=== PATIENT | female | born 1985 | race Caucasian/White ===

== ENCOUNTER 2017-05-03 18:33 | Emergency (ER) | payer OTHER ==
[~2017-05-03] VITALS: Wt 119.3 kg
[~2017-05-03 18:33] MED LIST: AMOXICILLIN500 MG PO; AMOXIL875 MG PO; ANAPROX DS550 MG PO; BIRTH CONTROL1 EACH PO; CLARITIN10 MG PO; LOMOTIL 0.025 M1 TA1 PO; MACROBID100 M1 PO; MEDROL DOSEPAK4 MG PO; MOTRIN800 MG PO; NKHM; NUVARING1 ICR V; PEPCID20 MG PO; PHENERGAN25 M1 PO; PREDNISONE10 MG PO; Phenergan25 MG PO; TRAMADOL HCL50 MG PO; ZANTAC150 MG PO; ZOFRAN ODT4 MG SL
[2017-05-03] MEDS ORDERED: PRENA1 CHEW TA1.4 MG PO (18:54)
[2017-05-03 19:14] LABS: BILIRUBIN NEGATIVE (NEGATIVE); BLOOD NEGATIVE (NEGATIVE); CLARITY SL CLOUDY (CLEAR); COLOR YELLOW (YELLOW); GLUCOSE NEGATIVE (NEGATIVE); KETONE NEGATIVE (NEGATIVE); LEUKO ESTERASE NEGATIVE (NEGATIVE); NITRITE NEGATIVE (NEGATIVE); UROBILINOGEN 0.2 E.U./dl (0.2-1.0)
[2017-05-03 19:21] LABS: BACTERIA 1+; EPITHELIAL CELLS 31-40; RBC 0-2 rbc/hpf (0-2)
[2017-05-03 19:39] LABS: BASO % 0.3 % (0.0-1.0); EOS # 0.1 10*3/uL (0.0-0.4); EOS % 1.3 % (1.0-4.0); HEMATOCRIT 37.8 % (37.0-47.0); HEMOGLOBIN 12.7 g/dl (12.0-16.0); LYMPH # 2.7 10*3/uL (1.3-4.4); LYMPH % 24.2 % (27.0-41.0); MEAN CELL VOLUME 87.3 fl (81.0-99.0); MEAN CORPUSCULAR HGB 29.3 pg (27.0-31.0); MEAN CORPUSCULAR HGB CONC 33.6 g/dl (33.0-37.0); MEAN PLATELET VOLUME 10.2 fl (9.6-12.3); MONO # 0.7 10*3/uL (0.1-1.0); MONO % 6.5 % (3.0-9.0); NEUT # 7.5 10*3/uL (2.3-7.9); NEUT % 67.3 % (47.0-73.0); PLATELET COUNT AUTOMATED 262 10*3/uL (130-400); RED BLOOD COUNT 4.33 10*6/uL (4.10-5.10); RED CELL DISTRI WIDTH 13.2 % (0-14.5); WHITE BLOOD COUNT 11.1 10*3/uL (4.8-10.8)
[2017-05-03 19:54] LABS: ALBUMIN 2.6 gm/dl (3.1-4.5); ALKALINE PHOSPHATASE 50 U/L (45-117); BUN 13 mg/dl (7-24); CHLORIDE 105 mmol/L (98-107); CREATININE 0.67 mg/dL (0.55-1.02); POTASSIUM 4.3 mmol/L (3.5-5.1); SGOT/AST 10 IU/L (3-35); SGPT/ALT 20 U/L (12-78); SODIUM 139 mmol/L (136-145); TOTAL PROTEIN 6.7 gm/dL (6.4-8.2)
== END 2017-05-03 21:03 | disposition home or self-care (01) ==
LOC: ED 18:33
PROVIDERS: Nurse Practitioner Family
DX: O98.812 Other maternal infectious and parasitic diseases complicating pregnancy, second trimester (principal); B37.3 Candidiasis of vulva and vagina; Z88.6 Allergy status to analgesic agent; Z91.040 Latex allergy status; Z79.899 Other long term (current) drug therapy; Z3A.14 14 weeks gestation of pregnancy

== ENCOUNTER 2017-07-11 08:39 | Emergency (ER) | payer OTHER ==
[~2017-07-11] VITALS: Ht 167.6 cm; Wt 121.1 kg
[~2017-07-11 08:39] MED LIST changes: +PRENA1 CHEW TA1.4 MG PO
[2017-07-11] MEDS ORDERED: ACTIGALL300 MG PO (09:01)
[2017-07-11 09:18] LABS: BILIRUBIN NEGATIVE (NEGATIVE); BLOOD NEGATIVE (NEGATIVE); CLARITY SL CLOUDY (CLEAR); COLOR YELLOW (YELLOW); GLUCOSE NEGATIVE (NEGATIVE); KETONE NEGATIVE (NEGATIVE); LEUKO ESTERASE NEGATIVE (NEGATIVE); NITRITE NEGATIVE (NEGATIVE); SPECIFIC GRAVITY >= 1.030 (1.005-1.030); UROBILINOGEN 0.2 E.U./dl (0.2-1.0)
[2017-07-11 09:32] LABS: BACTERIA 3+; EPITHELIAL CELLS 25-35; MUCOUS 1+
[2017-07-11] MEDS ORDERED: MACROBID100 M1 PO (09:39)
== END 2017-07-11 09:41 | disposition home or self-care (01) ==
LOC: ED 08:39
PROVIDERS: Family Medicine
DX: O23.42 Unspecified infection of urinary tract in pregnancy, second trimester (principal); Z3A.24 24 weeks gestation of pregnancy; Z91.040 Latex allergy status; Z88.8 Allergy status to other drugs, medicaments and biological substances; Z79.899 Other long term (current) drug therapy

== ENCOUNTER 2017-09-04 16:23 | Emergency (ER) | payer OTHER ==
[~2017-09-04] VITALS: Ht 167.6 cm; Wt 153.3 kg
[~2017-09-04 16:23] MED LIST changes: +ACTIGALL300 MG PO
[2017-09-04 17:15] LABS: BASO % 0.2 % (0.0-1.0); EOS # 0.1 10*3/uL (0.0-0.4); HEMATOCRIT 37.9 % (37.0-47.0); HEMOGLOBIN 12.3 g/dl (12.0-16.0); MEAN CELL VOLUME 88.8 fl (81.0-99.0); MEAN CORPUSCULAR HGB 28.8 pg (27.0-31.0); MEAN CORPUSCULAR HGB CONC 32.5 g/dl (33.0-37.0); MEAN PLATELET VOLUME 10.9 fl (9.6-12.3); MONO # 0.5 10*3/uL (0.1-1.0); MONO % 5.1 % (3.0-9.0); NEUT # 7.3 10*3/uL (2.3-7.9); NEUT % 73.4 % (47.0-73.0); PLATELET COUNT AUTOMATED 302 10*3/uL (130-400); RED BLOOD COUNT 4.27 10*6/uL (4.10-5.10); RED CELL DISTRI WIDTH 13.1 % (0-14.5); WHITE BLOOD COUNT 9.9 10*3/uL (4.8-10.8)
[2017-09-04 17:24] LABS: ACT PARTIAL THROMBO TIME 22.7 SECONDS (20.8-31.5); INTERNATIONAL NORM RATIO 0.9 (2.0-3.5)
[2017-09-04 17:31] LABS: ALBUMIN 2.4 gm/dl (3.1-4.5); ALKALINE PHOSPHATASE 123 U/L (45-117); BUN 8 mg/dl (7-24); CHLORIDE 107 mmol/L (98-107); CREATININE 0.74 mg/dL (0.55-1.02); POTASSIUM 4.3 mmol/L (3.5-5.1); SGOT/AST 14 IU/L (3-35); SGPT/ALT 14 U/L (12-78); SODIUM 140 mmol/L (136-145); TOTAL PROTEIN 7.1 gm/dL (6.4-8.2)
[2017-09-04 17:37] LABS: BILIRUBIN NEGATIVE (NEGATIVE); BLOOD NEGATIVE (NEGATIVE); CLARITY SL CLOUDY (CLEAR); COLOR YELLOW (YELLOW); GLUCOSE TRACE (NEGATIVE); KETONE NEGATIVE (NEGATIVE); LEUKO ESTERASE TRACE (NEGATIVE); NITRITE NEGATIVE (NEGATIVE); PH 6.5 (5.0-9.0); SPECIFIC GRAVITY 1.025 (1.005-1.030); UROBILINOGEN 0.2 E.U./dl (0.2-1.0)
[2017-09-04 17:47] LABS: EPITHELIAL CELLS TNTC
[2017-09-04 17:48] LABS: BACTERIA 2+
== END 2017-09-04 18:10 | disposition short-term general hospital (02) ==
LOC: ED 16:23
PROVIDERS: Emergency Medicine
DX: O13.3 Gestational [pregnancy-induced] hypertension without significant proteinuria, third trimester (principal); Z79.899 Other long term (current) drug therapy; Z91.040 Latex allergy status; Z88.8 Allergy status to other drugs, medicaments and biological substances; Z3A.32 32 weeks gestation of pregnancy

== ENCOUNTER 2017-10-23 06:42 | Emergency (ER) | payer OTHER ==
[~2017-10-23] VITALS: Ht 167.6 cm; Wt 145.6 kg
[2017-10-23] MEDS ORDERED: SERTRALINE HYDR25 MG PO (06:51)
[2017-10-23 07:42] LABS: BASO # 0.1 10*3/uL (0.0-0.1); BASO % 0.6 % (0.0-1.0); EOS # 0.3 10*3/uL (0.0-0.4); EOS % 3.3 % (1.0-4.0); HEMATOCRIT 34.3 % (37.0-47.0); HEMOGLOBIN 10.5 g/dl (12.0-16.0); LYMPH # 3.6 10*3/uL (1.3-4.4); LYMPH % 36.3 % (27.0-41.0); MEAN CELL VOLUME 88.4 fl (81.0-99.0); MEAN CORPUSCULAR HGB 27.1 pg (27.0-31.0); MEAN CORPUSCULAR HGB CONC 30.6 g/dl (33.0-37.0); MONO # 0.7 10*3/uL (0.1-1.0); MONO % 6.7 % (3.0-9.0); NEUT # 5.2 10*3/uL (2.3-7.9); NEUT % 52.8 % (47.0-73.0); PLATELET COUNT AUTOMATED 332 10*3/uL (130-400); RED BLOOD COUNT 3.88 10*6/uL (4.10-5.10); RED CELL DISTRI WIDTH 13.3 % (0-14.5); WHITE BLOOD COUNT 9.8 10*3/uL (4.8-10.8)
[2017-10-23 07:53] LABS: BUN 19 mg/dl (7-24); CHLORIDE 108 mmol/L (98-107); CREATININE 0.85 mg/dL (0.55-1.02); POTASSIUM 4.2 mmol/L (3.5-5.1); SODIUM 142 mmol/L (136-145)
[2017-10-23] MEDS ORDERED: PRILOSEC20 M1 PO (09:30)
== END 2017-10-23 09:39 | disposition home or self-care (01) ==
LOC: ED 06:42
PROVIDERS: Emergency Medicine
DX: O90.89 Other complications of the puerperium, not elsewhere classified (principal); J02.9 Acute pharyngitis, unspecified; Z79.899 Other long term (current) drug therapy; Z91.040 Latex allergy status; Z88.8 Allergy status to other drugs, medicaments and biological substances

== ENCOUNTER 2018-06-12 08:29 | Emergency (ER) | payer OTHER ==
[~2018-06-12] VITALS: Ht 167.6 cm; Wt 99.8 kg
[~2018-06-12 08:29] MED LIST changes: +AMOXICILLIN500 M2 PO; +DIFLUCAN150 MG PO; +PRILOSEC20 M1 PO; +SERTRALINE HYDR25 MG PO
[2018-08-08] MEDS ORDERED: CLARITIN10 MG PO (06:47)
[2018-08-08] MEDS ORDERED: AUGMENTIN 875875 MG PO (06:47)
== END 2018-06-12 09:27 | disposition home or self-care (01) ==
LOC: ED
DX: J06.9 Acute upper respiratory infection, unspecified (principal); H92.09 Otalgia, unspecified ear; E66.9 Obesity, unspecified; Z91.041 Radiographic dye allergy status; Z88.8 Allergy status to other drugs, medicaments and biological substances

== ENCOUNTER 2019-04-01 16:31 | Emergency (ER) | payer OTHER ==
[~2019-04-01] VITALS: Ht 165.1 cm; Wt 145.1 kg
[~2019-04-01 16:31] MED LIST changes: +AUGMENTIN 875875 MG PO
[2019-04-01] MEDS ORDERED: AMOXICILLIN500 M2 PO (18:23)
[2019-04-01] MEDS ORDERED: ZYRTEC10 MG PO (18:23)
[2019-04-01] MEDS ORDERED: FLONASE ALLERG9.9 ML NAS (18:23)
== END 2019-04-01 18:40 | disposition home or self-care (01) ==
LOC: ED 16:31
DX: H92.03 Otalgia, bilateral (principal); J01.90 Acute sinusitis, unspecified; Z91.040 Latex allergy status; Z88.8 Allergy status to other drugs, medicaments and biological substances

== ENCOUNTER 2020-11-15 16:05 | Emergency (ER) | payer OTHER ==
[~2020-11-15] VITALS: Ht 165.1 cm; Wt 156.9 kg
[~2020-11-15 16:05] MED LIST changes: +FLONASE ALLERG9.9 ML NAS; +ZYRTEC10 MG PO
[2020-11-15] MEDS ORDERED: CEPHALEXIN500 M1 PO (16:52)
[2020-11-15] MEDS ORDERED: PREDNISONE10 MG PO (16:52)
== END 2020-11-15 17:24 | disposition home or self-care (01) ==
LOC: ED 16:05
DX: L23.9 Allergic contact dermatitis, unspecified cause (principal); Z91.040 Latex allergy status; Z88.8 Allergy status to other drugs, medicaments and biological substances

== ENCOUNTER 2020-11-23 21:57 | Emergency (ER) | payer OTHER ==
[~2020-11-23] VITALS: Ht 165.1 cm; Wt 156.9 kg
[~2020-11-23 21:57] MED LIST changes: +CEPHALEXIN500 M1 PO
[2020-11-24] MEDS ORDERED: ATARAX,VISTARIL50 MG PO (00:49)
[2020-11-24] MEDS ORDERED: PEPCID20 MG PO (00:49)
== END 2020-11-24 01:01 | disposition home or self-care (01) ==
LOC: ED 21:57
DX: L25.9 Unspecified contact dermatitis, unspecified cause (principal); Z91.040 Latex allergy status; Z88.8 Allergy status to other drugs, medicaments and biological substances

== ENCOUNTER 2021-07-05 19:18 | Emergency (ER) | payer OTHER ==
[~2021-07-05] VITALS: Ht 165.1 cm; Wt 156.5 kg
[~2021-07-05 19:18] MED LIST changes: +ATARAX,VISTARIL50 MG PO
[2021-07-05 20:42] LABS: BASO # 0.1 10*3/uL (0.0-0.1); BASO % 0.5 % (0.0-1.0); EOS # 0.2 10*3/uL (0.0-0.4); HEMATOCRIT 39.5 % (37.0-47.0); LYMPH % 27.3 % (27.0-41.0); MEAN CELL VOLUME 86.1 fl (81.0-99.0); MEAN CORPUSCULAR HGB 27.5 pg (27.0-31.0); MEAN CORPUSCULAR HGB CONC 31.9 g/dl (33.0-37.0); MEAN PLATELET VOLUME 10.3 fl (9.6-12.3); MONO # 0.8 10*3/uL (0.1-1.0); MONO % 7.4 % (3.0-9.0); NEUT # 6.8 10*3/uL (2.3-7.9); NEUT % 62.4 % (47.0-73.0); PLATELET COUNT AUTOMATED 365 10*3/uL (130-400); RED BLOOD COUNT 4.59 10*6/uL (4.10-5.10); WHITE BLOOD COUNT 10.9 10*3/uL (4.8-10.8)
[2021-07-05 20:58] LABS: ALKALINE PHOSPHATASE 95 U/L (45-117); BUN 14 mg/dl (7-24); CHLORIDE 108 mmol/L (98-107); POTASSIUM 3.9 mmol/L (3.5-5.1); SGOT/AST 21 IU/L (3-35); SGPT/ALT 41 U/L (12-78); SODIUM 140 mmol/L (136-145); TOTAL PROTEIN 7.4 gm/dL (6.4-8.2)
[2021-07-06] MEDS ORDERED: PREDNISONE10 M1 PO (00:58)
[2021-07-06] MEDS ORDERED: DIFLUCAN150 MG PO (00:58)
[2021-07-06] MEDS ORDERED: AUGMENTIN 875-875 MG PO (00:58)
== END 2021-07-06 01:11 | disposition home or self-care (01) ==
LOC: ED 19:18
PROVIDERS: Emergency Medicine
DX: J02.9 Acute pharyngitis, unspecified (principal); Z90.89 Acquired absence of other organs; Z91.041 Radiographic dye allergy status; Z91.040 Latex allergy status; Z91.013 Allergy to seafood; Z88.8 Allergy status to other drugs, medicaments and biological substances

== ENCOUNTER 2022-03-18 20:14 | Emergency (ER) | payer OTHER ==
[~2022-03-18] VITALS: Ht 167.6 cm; Wt 145.1 kg
[~2022-03-18 20:14] MED LIST changes: +AUGMENTIN 875-875 MG PO; +PREDNISONE10 M1 PO
== END 2022-03-18 22:45 | disposition left against medical advice (07) ==
LOC: ED 20:14
DX: Z53.21 Procedure and treatment not carried out due to patient leaving prior to being seen by health care provider (principal)